=== PATIENT | female | born 1995 | race American Indian/Alaskan Native ===

== ENCOUNTER 2017-06-23 14:18 | Emergency (ER) | payer MEDICAID ==
[2017-06-23 14:34] VITALS: BP 127/63
== END 2017-06-23 19:03 ==
LOC: ED 14:18
DX: R10.9 Unspecified abdominal pain (principal); Z53.21 Procedure and treatment not carried out due to patient leaving prior to being seen by health care provider

== ENCOUNTER 2018-07-27 12:02 | Emergency (ER) | payer MEDICAID, OTHER ==
[2018-07-27 12:13] VITALS: BP 114/80
[2018-07-27] MEDS ORDERED: XYLOCAINE 2% INFILTRATI ONE (12:21)
[2018-07-27] MEDS ORDERED: NORCO 5/325 PO ONE (12:52)
[2018-07-27] MEDS ORDERED: ZOFRAN ODT PO ONE (12:52)
--- NOTE | 2018-07-27 12:53 | Emergency Department Report ---
ED Female HPI - General Chief complaint: Abdominal Pain Stated complaint: ABCESS Time Seen by Provider: 07/27/18 12:21 Source: patient, EMS Mode of arrival: Stretcher Limitations: No Limitations - History of Present Illness Initial comments: This is a 22-year-old female presents to ED complaining of an abscess to the buttock patient states she went to an urgent care 3 days ago and was given some antibiotic wouldn't truly a physician taken his medication with no relief at all. Patient says that pain is worse localized sore right inner buttocks. She denies bleeding, puslike discharge. She admits redness and irritation and pain receiving. We dictated with sitting. She denies fevers/chills/nausea vomiting - Related Data Previous Rx's Medication Instructions Recorded Last Taken Type diphenhydrAMINE [Benadryl CAP] 25 mg PO Q6HR PRN #25 capsule 11/20/15 Unknown Rx predniSONE [Deltasone] 20 mg PO QDAY #5 tab 11/20/15 Unknown Rx HYDROcodone/APAP 5-325 [[place] 1 each PO Q6HR PRN #12 tablet 12/10/15 Unknown Rx 5/325] Sulfamethoxazole/Trimethoprim 1 each PO BID #14 tablet 12/10/15 Unknown Rx [Bactrim DS TAB] Acetaminophen/Codeine [Tylenol 1 tab PO Q6H #10 tab 07/27/18 Unknown Rx /Codeine # 3 tab] Clindamycin [Clindamycin CAP] 300 mg PO Q8H #15 cap 07/27/18 Unknown Rx Sulfamethoxazole/Trimethoprim 1 each PO BID #14 tablet 07/27/18 Unknown Rx [Bactrim DS TAB] Allergies Allergy/AdvReac Type Severity Reaction Status Date / Time No Known Allergies Allergy Verified 12/10/15 09:42 ED Review of Systems ROS: Stated complaint: ABCESS Other details as noted in HPI Comment: All other systems reviewed and negative ED Past Medical Hx - Past Medical History Hx Hypertension: No Hx CVA: No Hx Heart Attack/AMI: No Hx Congestive Heart Failure: No Hx Diabetes: No Hx Deep Vein Thrombosis: No Hx Pulmonary Embolism: No Hx GERD: No Hx Liver Disease: No Hx Renal Disease: No Hx Sickle Cell Disease: No Hx Arthritis: No Hx Headaches / Migraines: No Hx Seizures: No Hx Kidney Stones: No Hx Psychiatric Treatment: No Hx Asthma: No Hx COPD: No Hx Tuberculosis: No Hx Dementia: No Hx HIV: No - Surgical History Hx Coronary Stent: No Hx Open Heart Surgery: No Hx Pacemaker: No Hx Internal Defibrillator: No Hx Cholecystectomy: No Hx Appendectomy: No Hx Breast Surgery: No - Social History Smoking Status: Never Smoker Substance Use Type: Marijuana - Medications Home Medications: Home Medications Medication Instructions Recorded Confirmed Last Taken Type diphenhydrAMINE [Benadryl CAP] 25 mg PO Q6HR PRN #25 capsule 11/20/15 Unknown Rx predniSONE [Deltasone] 20 mg PO QDAY #5 tab 11/20/15 Unknown Rx HYDROcodone/APAP 5-325 [[place] 1 each PO Q6HR PRN #12 tablet 12/10/15 Unknown Rx 5/325] Sulfamethoxazole/Trimethoprim 1 each PO BID #14 tablet 12/10/15 Unknown Rx [Bactrim DS TAB] Acetaminophen/Codeine [Tylenol 1 tab PO Q6H #10 tab 07/27/18 Unknown Rx /Codeine # 3 tab] Clindamycin [Clindamycin CAP] 300 mg PO Q8H #15 cap 07/27/18 Unknown Rx Sulfamethoxazole/Trimethoprim 1 each PO BID #14 tablet 07/27/18 Unknown Rx [Bactrim DS TAB] ED Physical Exam - General Limitations: No Limitations General appearance: alert, in no apparent distress - Head Head exam: Present: atraumatic, normocephalic - Eye Eye exam: Present: normal appearance - ENT ENT exam: Present: mucous membranes moist - Neck Neck exam: Present: normal inspection - Respiratory Respiratory exam: Present: normal lung sounds bilaterally. Absent: respiratory distress - Cardiovascular Cardiovascular Exam: Present: regular rate, normal rhythm. Absent: systolic murmur, diastolic murmur, rubs, gallop - GI/Abdominal GI/Abdominal exam: Present: soft, normal bowel sounds - Rectal Rectal exam: Present: mass, tenderness (right buttock inner), other (right inner buttock cellulitis, tender to palpation) - Extremities Exam Extremities exam: Present: normal inspection - Back Exam Back exam: Present: normal inspection - Neurological Exam Neurological exam: Present: alert, oriented X3 - Psychiatric Psychiatric exam: Present: normal affect, normal mood - Skin Skin exam: Present: warm, dry, intact, normal color. Absent: rash ED Course Vital Signs 07/27/18 07/27/18 12:06 13:06 Temperature 98.4 F Pulse Rate 113 H Respiratory 19 16 Rate Blood Pressure 114/80 O2 Sat by Pulse 98 Oximetry - I & D Right Buttocks Type of Procedure: Simple Blade Size: 11 I & D Procedure: betadine prep, sterile drapes applied, sterile dressing applied, gauze wick placed Progress: Patient positioned appropriately, 15cc lidocaine without epinephrine was used as a local anesthetic. #11 blade scalpal used for single incision. Additional local anesthetic injected into surrounding viable tissue prior to blunt dissection of loculated adhesions. Copius drainage of pus. Wound packed with iodoform gauze. Procedure tolerated without complications. Wound dressed with sterile 4x4 guaze and paper tape. Pt tolerated procedure well. ED Medical Decision Making - Medical Decision Making 19-year-old female presents with right buttock abscess. Abscess was drained patient tolerated procedure well. Vital signs are normal she is in acute distress. Patient given antibiotics and pain medication Discussed to return to the ED in 3 days for wound check Critical care attestation.: If time is entered above; I have spent that time in minutes in the direct care of this critically ill patient, excluding procedure time. ED Disposition Clinical Impression: Abscess of buttock, right Disposition: DC-01 TO HOME OR SELFCARE Is pt being admited?: No Does the pt Need Aspirin: No Condition: Stable Instructions: Abscess Incision and Drainage (ED), Abscess (ED), Abdominal Pain (ED) Additional Instructions: Make sure to follow up with the primary care physician as discussed. Take all your medications as you've been prescribed. If you have any worsening symptoms or develop new symptoms please return to ED immediately. Prescriptions: Sulfamethoxazole/Trimethoprim [Bactrim DS TAB] 1 each PO BID #14 tablet Clindamycin [Clindamycin CAP] 300 mg PO Q8H #15 cap Acetaminophen/Codeine [Tylenol /Codeine # 3 tab] 1 tab PO Q6H #10 tab Referrals: IONA RAMIRES MD [Primary Care Provider] - 3-5 Days Forms: Accompanied Note, Work/School Release Form(ED) Time of Disposition: 14:49
== END 2018-07-27 15:09 | disposition home or self-care (01) ==
LOC: ED 12:02
DX: L02.31 Cutaneous abscess of buttock (principal); F12.10 Cannabis abuse, uncomplicated
CPT/HCPCS: Q0162

== ENCOUNTER 2020-06-07 14:32 | Emergency (ER) | payer SELFPAY ==
[2020-06-07 14:58] VITALS: BP 137/69
--- NOTE | 2020-06-07 16:01 | Event Note ---
ED Screening Note Date of service: 06/07/20 Time: 16:00 ED Screening Note: Complaints of abscess to the buttocks This initial assessment/diagnostic orders/clinical plan/treatment(s) is/are subject to change based on patients health status, clinical progression and re- assessment by fellow clinical providers in the ED. Further treatment and workup at subsequent clinical providers discretion. Patient/guardian urged not to elope from the ED as their condition may be serious if not clinically assessed and managed. Initial orders include: Further evaluation in ACC
--- NOTE | 2020-06-07 17:37 | Emergency Department Report ---
- General Chief complaint: Skin/Abscess/Foreign Body Stated complaint: ABSCESS Time Seen by Provider: 06/07/20 16:00 Source: patient Mode of arrival: Ambulatory Limitations: No Limitations - History of Present Illness Initial comments: Patient is a 24-year-old female presents emergency room complaints of a gluteal abscess that began a week ago. She has not tried any thing to alleviate her symptoms. She states that she has pain with sitting in the region. She states that she has had this twice in the past. She states that she just had a I&D performed a couple of months ago. She denies any fever, nausea, vomiting, diarrhea, drainage, chills. She has never seen a general surgeon for this. No past medical history. No allergies medications. - Related Data Previous Rx's Medication Instructions Recorded Last Taken Type diphenhydrAMINE [Benadryl CAP] 25 mg PO Q6HR PRN #25 capsule 11/20/15 Unknown Rx predniSONE [Deltasone] 20 mg PO QDAY #5 tab 11/20/15 Unknown Rx HYDROcodone/APAP 5-325 [[place] 1 each PO Q6HR PRN #12 tablet 12/10/15 Unknown Rx 5/325] Sulfamethoxazole/Trimethoprim 1 each PO BID #14 tablet 12/10/15 Unknown Rx [Bactrim DS TAB] Acetaminophen/Codeine [Tylenol 1 tab PO Q6H #10 tab 07/27/18 Unknown Rx /Codeine # 3 tab] Clindamycin [Clindamycin CAP] 300 mg PO Q8H #15 cap 07/27/18 Unknown Rx Doxycycline Hyclate [Doxycycline 100 mg PO BID 7 Days #14 tab 06/07/20 Unknown Rx Hyclate TAB] Naproxen [EC-Naprosyn] 500 mg PO BID PRN #20 tablet. 06/07/20 Unknown Rx Sulfamethoxazole/Trimethoprim 1 each PO BID #14 tablet 06/07/20 Unknown Rx [Bactrim DS TAB] Allergies Allergy/AdvReac Type Severity Reaction Status Date / Time No Known Allergies Allergy Verified 12/10/15 09:42 Abscess Boil HPI - HPI Chief Complaint: Skin/Abscess/Foreign Body Stated Complaint: ABSCESS Time Seen by Provider: 06/07/20 16:00 Home Medications: Previous Rx's Medication Instructions Recorded Last Taken Type diphenhydrAMINE [Benadryl CAP] 25 mg PO Q6HR PRN #25 capsule 11/20/15 Unknown Rx predniSONE [Deltasone] 20 mg PO QDAY #5 tab 11/20/15 Unknown Rx HYDROcodone/APAP 5-325 [[place] 1 each PO Q6HR PRN #12 tablet 12/10/15 Unknown Rx 5/325] Sulfamethoxazole/Trimethoprim 1 each PO BID #14 tablet 12/10/15 Unknown Rx [Bactrim DS TAB] Acetaminophen/Codeine [Tylenol 1 tab PO Q6H #10 tab 07/27/18 Unknown Rx /Codeine # 3 tab] Clindamycin [Clindamycin CAP] 300 mg PO Q8H #15 cap 07/27/18 Unknown Rx Doxycycline Hyclate [Doxycycline 100 mg PO BID 7 Days #14 tab 06/07/20 Unknown Rx Hyclate TAB] Naproxen [EC-Naprosyn] 500 mg PO BID PRN #20 tablet. 06/07/20 Unknown Rx Sulfamethoxazole/Trimethoprim 1 each PO BID #14 tablet 06/07/20 Unknown Rx [Bactrim DS TAB] Allergies/Adverse Reactions: Allergies Allergy/AdvReac Type Severity Reaction Status Date / Time No Known Allergies Allergy Verified 12/10/15 09:42 ED Review of Systems ROS: Stated complaint: ABSCESS Other details as noted in HPI Comment: All other systems reviewed and negative ED Past Medical Hx - Past Medical History Previous Medical History?: No Hx Hypertension: No Hx CVA: No Hx Heart Attack/AMI: No Hx Congestive Heart Failure: No Hx Diabetes: No Hx Deep Vein Thrombosis: No Hx Pulmonary Embolism: No Hx GERD: No Hx Liver Disease: No Hx Renal Disease: No Hx Sickle Cell Disease: No Hx Arthritis: No Hx Headaches / Migraines: No Hx Seizures: No Hx Kidney Stones: No Hx Psychiatric Treatment: No Hx Asthma: No Hx COPD: No Hx Tuberculosis: No Hx Dementia: No Hx HIV: No - Surgical History Past Surgical History?: No Hx Coronary Stent: No Hx Open Heart Surgery: No Hx Pacemaker: No Hx Internal Defibrillator: No Hx Cholecystectomy: No Hx Appendectomy: No Hx Breast Surgery: No - Social History Smoking Status: Never Smoker Substance Use Type: Marijuana - Medications Home Medications: Home Medications Medication Instructions Recorded Confirmed Last Taken Type diphenhydrAMINE [Benadryl CAP] 25 mg PO Q6HR PRN #25 capsule 11/20/15 Unknown Rx predniSONE [Deltasone] 20 mg PO QDAY #5 tab 11/20/15 Unknown Rx HYDROcodone/APAP 5-325 [[place] 1 each PO Q6HR PRN #12 tablet 12/10/15 Unknown Rx 5/325] Sulfamethoxazole/Trimethoprim 1 each PO BID #14 tablet 12/10/15 Unknown Rx [Bactrim DS TAB] Acetaminophen/Codeine [Tylenol 1 tab PO Q6H #10 tab 07/27/18 Unknown Rx /Codeine # 3 tab] Clindamycin [Clindamycin CAP] 300 mg PO Q8H #15 cap 07/27/18 Unknown Rx Doxycycline Hyclate [Doxycycline 100 mg PO BID 7 Days #14 tab 06/07/20 Unknown Rx Hyclate TAB] Naproxen [EC-Naprosyn] 500 mg PO BID PRN #20 tablet. 06/07/20 Unknown Rx Sulfamethoxazole/Trimethoprim 1 each PO BID #14 tablet 06/07/20 Unknown Rx [Bactrim DS TAB] ED Physical Exam - General Limitations: No Limitations General appearance: alert, in no apparent distress - Head Head exam: Present: atraumatic, normocephalic - Eye Eye exam: Present: normal appearance - ENT ENT exam: Present: mucous membranes moist - Respiratory Respiratory exam: Absent: respiratory distress, accessory muscle use - Neurological Exam Neurological exam: Present: alert, oriented X3 - Psychiatric Psychiatric exam: Present: normal affect, normal mood - Skin Skin exam: Present: warm, dry, other (3 cm area of induration to the right inner gluteus, no invovlement of the perirectal region, no perineum or vaginal involvement, no fluctuance, no significant surrounding erythema, no opening, no draining, digital content specialist: yue olson ) ED Course Vital Signs 06/07/20 14:57 Temperature 99.6 F Pulse Rate 106 H Respiratory 16 Rate Blood Pressure 137/69 [Right] O2 Sat by Pulse 100 Oximetry ED Medical Decision Making - Medical Decision Making Patient is a 24-year-old female presents emergency room complaints of a gluteal abscess that began a week ago. She has not tried any thing to alleviate her symptoms. She states that she has pain with sitting in the region. She states that she has had this twice in the past. She states that she just had a I&D performed a couple of months ago. She denies any fever, nausea, vomiting, diarrhea, drainage, chills. She has never seen a general surgeon for this. No past medical history. No allergies medications. Vitals with very mild tachycardia, could be related to discomfort, patient states that she does not like to sit on that region. On exam:3 cm area of induration to the right inner gluteus, no invovlement of the perirectal region, no perineum or vaginal involvement, no fluctuance, no significant surrounding erythema, no opening, no draining digital content specialist: yue olson. Examination appears consistent with gluteal cellulitis. There is no signs of drainable abscess at this time. Patient given prescription for doxycycline, Bactrim, naproxen. Advised patient Please take medication as prescribed. Please do sitz bath as instructed. Please use warm compresses. Follow-up with your primary care doctor. Follow-up with a general surgeon. Return to emergency room for any new or worsening symptoms or any worsening signs of infection. Critical care attestation.: If time is entered above; I have spent that time in minutes in the direct care of this critically ill patient, excluding procedure time. ED Disposition Clinical Impression: Cellulitis Qualifiers: Site of cellulitis: buttock Qualified Code(s): L03.317 - Cellulitis of buttock Disposition: DC- TO HOME OR SELFCARE Is pt being admited?: No Does the pt Need Aspirin: No Condition: Stable Instructions: Cellulitis, Adult, How to Take a Sitz Bath Additional Instructions: Please take medication as prescribed. Please do sitz bath as instructed. Please use warm compresses. Follow-up with your primary care doctor. Follow-up with a general surgeon. Return to emergency room for any new or worsening symptoms or any worsening signs of infection. Prescriptions: Sulfamethoxazole/Trimethoprim [Bactrim DS TAB] 1 each PO BID #14 tablet Doxycycline Hyclate [Doxycycline Hyclate TAB] 100 mg PO BID 7 Days #14 tab Naproxen [EC-Naprosyn] 500 mg PO BID PRN #20 tablet.dr CAMEJO Reason: pain Referrals: JESSICA TREVIZO MD [Staff Physician] - 2-3 Days IONA RAMIRES MD [Staff Physician] - 2-3 Days [facility] [Provider Group] - 2-3 AXEL Carroll MD [Staff Physician] - 2-3 Days Time of Disposition: 17:35 Print Language: HAITIAN
== END 2020-06-07 18:11 | disposition home or self-care (01) ==
LOC: ED 14:32
DX: L03.317 Cellulitis of buttock (principal); F12.90 Cannabis use, unspecified, uncomplicated; Z79.899 Other long term (current) drug therapy
CPT/HCPCS: 99281

== ENCOUNTER 2020-06-09 12:20 | Emergency (ER) | payer SELFPAY ==
--- NOTE | 2020-06-09 13:38 | Emergency Department Report ---
<SLIME HEARN - Last Filed: 06/09/20 18:45> ED General Adult HPI - General Chief complaint: Skin/Abscess/Foreign Body Stated complaint: CELLUTIS Time Seen by Provider: 06/09/20 13:37 - Related Data Previous Rx's Medication Instructions Recorded Last Taken Type diphenhydrAMINE [Benadryl CAP] 25 mg PO Q6HR PRN #25 capsule 11/20/15 Unknown Rx predniSONE [Deltasone] 20 mg PO QDAY #5 tab 11/20/15 Unknown Rx HYDROcodone/APAP 5-325 [[place] 1 each PO Q6HR PRN #12 tablet 12/10/15 Unknown Rx 5/325] Sulfamethoxazole/Trimethoprim 1 each PO BID #14 tablet 12/10/15 Unknown Rx [Bactrim DS TAB] Acetaminophen/Codeine [Tylenol 1 tab PO Q6H #10 tab 07/27/18 Unknown Rx /Codeine # 3 tab] Clindamycin [Clindamycin CAP] 300 mg PO Q8H #15 cap 07/27/18 Unknown Rx Doxycycline Hyclate [Doxycycline 100 mg PO BID 7 Days #14 tab 06/07/20 Unknown Rx Hyclate TAB] Naproxen [EC-Naprosyn] 500 mg PO BID PRN #20 tablet. 06/07/20 Unknown Rx Sulfamethoxazole/Trimethoprim 1 each PO BID #14 tablet 06/07/20 Unknown Rx [Bactrim DS TAB] Allergies Allergy/AdvReac Type Severity Reaction Status Date / Time No Known Allergies Allergy Verified 12/10/15 09:42 ED Past Medical Hx - Medications Home Medications: Home Medications Medication Instructions Recorded Confirmed Last Taken Type diphenhydrAMINE [Benadryl CAP] 25 mg PO Q6HR PRN #25 capsule 11/20/15 Unknown Rx predniSONE [Deltasone] 20 mg PO QDAY #5 tab 11/20/15 Unknown Rx HYDROcodone/APAP 5-325 [[place] 1 each PO Q6HR PRN #12 tablet 12/10/15 Unknown Rx 5/325] Sulfamethoxazole/Trimethoprim 1 each PO BID #14 tablet 12/10/15 Unknown Rx [Bactrim DS TAB] Acetaminophen/Codeine [Tylenol 1 tab PO Q6H #10 tab 07/27/18 Unknown Rx /Codeine # 3 tab] Clindamycin [Clindamycin CAP] 300 mg PO Q8H #15 cap 07/27/18 Unknown Rx Doxycycline Hyclate [Doxycycline 100 mg PO BID 7 Days #14 tab 06/07/20 Unknown Rx Hyclate TAB] Naproxen [EC-Naprosyn] 500 mg PO BID PRN #20 tablet. 06/07/20 Unknown Rx Sulfamethoxazole/Trimethoprim 1 each PO BID #14 tablet 06/07/20 Unknown Rx [Bactrim DS TAB] - I & D Buttocks Type of Procedure: Simple Site: Right perianal Blade Size: 11 I & D Procedure: betadine prep, gauze wick placed Progress: Patient anesthetized using 10 cc of lidocaine 1% without epinephrine. Betadine prep. Sterile field. Copious drainage obtained from wound. Sample was taken for wound culture. Iodoform packing placed. Minimal bleeding occurred. Sterile dressing placed on wound. Patient tolerated procedure well without any immediate complications. ED Disposition Clinical Impression: Gluteal abscess Disposition: DC- TO HOME OR SELFCARE Condition: Stable Instructions: Incision and Drainage, Care After Additional Instructions: Continue all medications as previously prescribed. Take antibiotics with food. Keep area clean. Sitz baths as needed for pain. Follow-up with Dr. Noel, general surgery, next week. Call Friday to schedule an appointment. Return to the emergency department immediately for new or worsening symptoms. <ABDULAZIZ HENSLEY - Last Filed: 06/09/20 22:15> ED General Adult HPI - General Source: patient Mode of arrival: Ambulatory Limitations: No Limitations - History of Present Illness Initial comments: 24-year-old female patient presents to emergency department with complaints of worsening gluteal abscess. Patient was evaluated in the emergency department 2 days ago for this problem. She was prescribed Bactrim, doxycycline, and NSAIDs with limited relief. Abscess was not appropriate for I&D at that time. Patient states the pain is worsening and feels as though the infection may be spreading. She does not currently have follow-up scheduled with a general surgeon. States she has been compliant with medications. Pain is worse with defecation and sitting. Denies fever, chills, rectal bleeding, abdominal pain, pelvic pain. Denies all other complaints at this time. ED Review of Systems ROS: Stated complaint: CELLUTIS Other details as noted in HPI Other: GENERAL: Negative for fever. CARDIOVASCULAR: Negative for chest pain. PULMONARY: Negative for shortness of breath. GASTROINTESTINAL: Negative for abdominal pain. MUSCULOSKELETAL: Negative for back pain. NEUROLOGICAL: Negative for headache. INTEGUMENTARY: Positive for abscess. ED Past Medical Hx - Past Medical History Previous Medical History?: No Hx Hypertension: No Hx CVA: No Hx Heart Attack/AMI: No Hx Congestive Heart Failure: No Hx Diabetes: No Hx Deep Vein Thrombosis: No Hx Pulmonary Embolism: No Hx GERD: No Hx Liver Disease: No Hx Renal Disease: No Hx Sickle Cell Disease: No Hx Arthritis: No Hx Headaches / Migraines: No Hx Seizures: No Hx Kidney Stones: No Hx Psychiatric Treatment: No Hx Asthma: No Hx COPD: No Hx Tuberculosis: No Hx Dementia: No Hx HIV: No - Surgical History Past Surgical History?: No Hx Coronary Stent: No Hx Open Heart Surgery: No Hx Pacemaker: No Hx Internal Defibrillator: No Hx Cholecystectomy: No Hx Appendectomy: No Hx Breast Surgery: No - Social History Smoking Status: Never Smoker Substance Use Type: Marijuana ED Physical Exam - General Limitations: No Limitations - Other Other exam information: General: Awake, appropriately interactive, no acute distress. Neck: Supple. Full range of motion intact. Cardiovascular: Normal peripheral perfusion. Pulmonary: No respiratory distress. Patient is speaking normally without use of accessory muscles. 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 Moderate size abscess noted to the right gluteus at approximately 3 o'clock position in relation to the rectum. There is overlying tenderness and fluctuance throughout, as well as surrounding cellulitis and minimal drainage. No streaking. No crepitus. Neurological: No facial asymmetry. Speech is clear. Follows commands. Patient is alert and oriented. Musculoskeletal: Moves all four extremities spontaneously with normal range of motion. Psych: Cooperative. Appropriate mood and affect. ED Course Vital Signs 06/09/20 06/09/20 12:32 19:11 Temperature 98.2 F Pulse Rate 104 H 97 H Respiratory 16 18 Rate Blood Pressure 115/67 Blood Pressure 104/64 [Right] O2 Sat by Pulse 99 97 Oximetry ED Medical Decision Making - Medical Decision Making Differential diagnosis including but not limited to: abscess, cellulitis, necrotizing soft tissue infection, Yimi's gangrene, pilonidal cyst, inflammatory bowel disease Patient presents to emergency department with complaints of a gluteal abscess. She was seen here 2 days ago for the same symptoms. At that time, the abscess was not appropriate for I&D. She was discharged home with doxycycline and Bactrim. Today, the abscess appears to have enlarged. There is surrounding cellulitis and increased fluctuance. Incision and drainage performed without complications. See procedure note for details. Patient will be discharged home to continue antibiotics as previously prescribed. Emphasized the importance of following up with primary care provider/general surgery for wound reevaluation early next week. Patient expressed understanding and is agreeable to plan of care. Advised to continue Sitz baths as previously instructed. Strict return precautions provided. Repeat exam is unremarkable and benign. History, exam, diagnostic testing, and current condition do not suggest worrisome pathology to warrant further testing, continued ED treatment, admission, or surgical evaluation at this point. Given the low probability of a significant medical illness, it would be more likely to result in harm than benefit to perform further testing at this stage. Discussed findings, presumptive diagnosis, need for follow-up and specific signs/symptoms that should prompt immediate return to the emergency department. Instructions were explained in detail to the patient in addition to giving written discharge information. Patient expressed understanding and was given the opportunity to ask questions, all of which were satisfactorily answered prior to discharge home. Critical care attestation.: If time is entered above; I have spent that time in minutes in the direct care of this critically ill patient, excluding procedure time. ED Disposition Is pt being admited?: No Does the pt Need Aspirin: No Time of Disposition: 18:50
[2020-06-09] MEDS ORDERED: LIDOCAINE (1%) 10 MG/1 ML VIAL 20 ML MDV INFILTRATI ONE (17:55)
[2020-06-09] MEDS ORDERED: oxyCODONE /ACETAMINOPHEN 5-325MG TAB PO ONE (18:13)
[2020-06-09 19:12] VITALS: BP 104/64
== END 2020-06-09 19:11 | disposition home or self-care (01) ==
LOC: ED 12:20
DX: L02.31 Cutaneous abscess of buttock (principal); F12.90 Cannabis use, unspecified, uncomplicated; Z79.899 Other long term (current) drug therapy
CPT/HCPCS: 87116

== ENCOUNTER 2020-10-29 21:52 | Emergency (ER) | payer OTHER ==
[2020-10-29 22:25] VITALS: BP 114/72
[2020-10-29] MEDS ORDERED: ACETAMINOPHEN 500 MG TAB PO ONE (22:58)
[2020-10-29] MEDS ORDERED: CYCLOBENZAPRINE 10 MG TAB PO ONE (22:59)
--- NOTE | 2020-10-30 00:07 | XRay Report ---
Cervical spine 3 views INDICATION: Neck pain following injury IMPRESSION: No acute fracture or subluxation of the cervical spine is identified. Signer Name: Swapnil Avila MD Signed: 10/30/2020 12:03 AM Workstation Name: [id number]
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
== END 2020-10-30 02:45 | disposition home or self-care (01) ==
LOC: ED 21:52
DX: M62.838 Other muscle spasm (principal); M62.830 Muscle spasm of back; F12.90 Cannabis use, unspecified, uncomplicated; Z79.899 Other long term (current) drug therapy; V49.49XA Driver injured in collision with other motor vehicles in traffic accident, initial encounter; Y92.410 Unspecified street and highway as the place of occurrence of the external cause; Y93.89 Activity, other specified; Y99.8 Other external cause status
CPT/HCPCS: 70450; 72040; 72125